=== PATIENT | female | born 1990 | race Caucasian/White ===

== ENCOUNTER 2017-01-19 08:23 | Emergency (ER) | payer OTHER ==
[2015-01-01 12:27] VITALS: BMI 27.9
--- NOTE | 2017-01-20 11:07 | OBHP ---
Datetime: 01/19/2017 09:08 IP Adm Impression: , intrauterine ; No Active Labor IP Chief Complaint Other: For NST IP Admit Plan: Discharge home Admit Comment, IP Provider: 26 y.o. , LMP unsure, KERI 02/25/17, EGA 34w 5d, referred for NST. (+ ) AFM, denies LOF, VB, Ctx. Last had sexual intercourse 1 week ago. issues: [facility] - no is sues. Next visit 01/20/17. P Ob: 05/2014, C/S, elective (patient request) - male, 8lb 5oz; no complications, CH P MEDICAL NURSE: 12 x monthly x . 2013, (+) chlamydia PMH: denies PSH: C/S NKDA Meds: PNV Soc Hx: denies tobacco, illicit drug or EtOH use. With FOB x 5 years; lives with him and daughter. Fam Hx: Mother and father - both 50 y.o.; alive; no med issues. No known fam h/o cancer P.E.: as above. WD in NAD. Awake, alert, oriented to time, person and place. Pleasant and cooperat melvin. Assessment: 26 y.o. P1, 34w 5d, previous C/S x 1; NST reactive/ Category [address] able. Plan: 1) Discharge home 2) Reviewed S/S PTL 3) Keep scheduled appointments Pelvic Type - PN: Not Done Extremities - PN: Normal Abdomen - PN: Normal Back - PN: Normal Breast - PN: Not Done Lungs - PN: Normal Heart - PN: Normal Thyroid - PN: Not Done Neurologic - PN: Normal HEENT - PN: Normal General - PN: Normal Presentation-Admit: Vertex FHR - Baseline A Provider: 135 Contraction Comments Provider: none Comments, ACOG Physical Exam: Abdomen: Gravid. Soft. non tender in all quadrants. Fundal height 34 c m. Healed Pfannenstiel scar. All other systems reviewed and are negative Gestation - Est Wks by US: 34w 5d EGA AdmitDate IP: 34.5 IP Chief Complaint: Other NICHD Variability Prov Fetus A: Moderate 6-25bpm NICHD Accel Fetus A IP Provider: 15X15 FHR Category Provider Fetus A: Category I NICHD Decel Fetus A IP Provider: None Dilatation, Provider: deferred Genitourinary Exam: Not Done DTRs - PN: Not Done
[2017-01-20 15:06] VITALS: BP 107/63; PULSE 88; RESP 18; TEMP 98.5; O2SAT 100
== END 2017-01-19 08:59 | disposition home or self-care (01) ==
LOC: C.EROB 08:23
DX: Z36 Encounter for antenatal screening of mother (principal)

== ENCOUNTER 2017-01-24 05:48 | Emergency (ER) | payer OTHER ==
[2017-01-24 06:07] VITALS: BMI 28.9
[2017-01-24 14:45] VITALS: BP 91/49; PULSE 87; RESP 18
== END 2017-01-24 10:41 | disposition home or self-care (01) ==
LOC: C.EROB 05:48
DX: O26.853 Spotting complicating pregnancy, third trimester (principal); Z3A.35 35 weeks gestation of pregnancy
CPT/HCPCS: 81001; 96365; 99283; J0696; J7120

== ENCOUNTER 2017-02-16 07:50 | Inpatient (IN) | payer OTHER ==
[2017-02-18] MEDS ORDERED: Sodium Citrate/Citric Acid 15 ml Sol PO ONE (06:40)
[2017-02-18] MEDS ORDERED: cefOXitin IV 2 gm in Dextrose 2 GM/50 ML BAG IVPB ONE ×2 (06:40→07:24)
--- NOTE | 2017-02-18 06:43 | OBADHP ---
Datetime: 02/18/2017 06:35 Admit Comment, IP Provider: 26 y/o y/o @ 39 wks by LMP KERI 02/25/17 reports here for scheueld cesearen sectio. pt denies any ctx, lof, vb, +FM. pt reports pnc has been uncomplicated Ante: PNC at clnic, elevated 1 hour GTT, normal 3 hour GTT as per pt OB: P1 FT PLTCS Elective 7lbs + no complicatoins 3 years ago VP ACCOUNT DIRECTOR: dneies hx of abnormla pap, fibroids, ovarian cyst, STI PMH: denies PSH: CxS FHX: denies SHX: negateive etoh/tobacco/drugs MEDS: pnvs a/p 26 y/o @ 39 wks GA with prior cesearen section with elective repeat cesearen section 1. admit to L+D 2. NPO 3. Admission labs 4. Cont toco and efm 5. Anesthesia consult 6. NPO< IVF 7. Anbitiocs 8. abodminal prep 9. Jarvis to graivty Pelvic Type - PN: Adequate Extremities - PN: Normal Abdomen - PN: Normal Back - PN: Normal Breast - PN: Not Done Lungs - PN: Normal Heart - PN: Normal Thyroid - PN: Normal Neurologic - PN: Normal HEENT - PN: Normal General - PN: Normal Weight - Estimated: 3400 Presentation-Admit: Vertex FHR - Baseline A Provider: 135 Contraction Comments Provider: q 3-5 min Gestation - Est Wks by US: 39.0 IP Hx Assessment: The History has been Reviewed and is Current Vital Signs Provider: Reviewed; Within Normal Limits IP Chief Complaint: Scheduled Section NICHD Variability Prov Fetus A: Moderate 6-25bpm FHR Category Provider Fetus A: Category I Genitourinary Exam: Normal DTRs - PN: Normal EGA AdmitDate IP: 39.0 IP Adm Impression: Term, intrauterine IP Admit Plan: Initiate Section protocol Datetime: 01/24/2017 10:19 Dilatation, Provider: 0 Effacement, Provider: thick Station, Provider: high Datetime: 01/24/2017 06:14 IP Chief Complaint Other: vaginal spotting Comments, ACOG Physical Exam: gravid,non tender ext no edema,no yifan sse no blood NICHD Accel Fetus A IP Provider: 10X10 Datetime: 01/19/2017 09:08 NICHD Decel Fetus A IP Provider: None
[2017-02-18] MEDS ORDERED: Sodium Citrate/Citric Acid 15 ml Sol ONE (07:24)
[2017-02-18] MEDS ORDERED: Oxytocin 20 units in LR 2,000 ML IV ONE (07:24)
[2017-02-18 07:39] LABS: BASO # 0.1 K/uL (0.0-0.2); BASO % 0.5 % (0.0-2.0); EOS # 0.2 K/uL (0.0-0.7); EOS % 1.5 % (0.0-4.0); HEMATOCRIT 34.7 % (34.0-47.0); LYMPH # 2.2 K/uL (1.0-4.3); LYMPH % 17.3 % (20.0-40.0); MEAN CELL VOLUME 78.7 fL (81.0-99.0); MEAN CORPUSCULAR HEMOGLOBIN 25.1 pg (27.0-31.0); MEAN CORPUSCULAR HGB CONC 31.9 g/dL (33.0-37.0); MEAN PLATELET VOLUME 10.9 fL (7.2-11.7); MONO # 0.7 K/uL (0.0-0.8); MONO % 5.9 % (0.0-10.0); RED CELL DISTRIBUTION WIDTH 15.5 % (11.5-14.5); WHITE BLOOD COUNT 12.5 K/uL (4.8-10.8)
[2017-02-18] MEDS ORDERED: Oxytocin 10 Units/ml Inj ONE (07:42)
[2017-02-18] MEDS: Lactated Ringer's 1,000 ML IV SCH ×3 (07:44→22:45)
[2017-02-18 07:51] LABS: RBC URINE 7 /hpf (0-3); URINE BACTERIA OCC (<OCC); URINE BILIRUBIN NEGATIVE (NEGATIVE); URINE BLOOD 1+ (NEGATIVE); URINE COLOR Yellow (YELLOW); URINE GLUCOSE (UA) NORMAL (Normal); URINE KETONE NEGATIVE (NEGATIVE); URINE LEUKOCYTE ESTERASE 3+ Leu/uL (Negative); URINE PROTEIN NEGATIVE (NEGATIVE); URINE UROBILINOGEN NORMAL mg/dL (0.2-1.0); WBC URINE 14 /hpf (0-5)
[2017-02-18 07:53] LABS: CHLORIDE 107 mmol/L (98-107); SODIUM 137 mmol/L (132-148)
[2017-02-18 07:54] LABS: POTASSIUM 4.2 mmol/L (3.6-5.2)
[2017-02-18 07:56] LABS: CARBON DIOXIDE 21 mmol/L (22-30); GFR AFRICAN-AMERICAN > 60
[2017-02-18 07:57] LABS: BLOOD UREA NITROGEN 10 mg/dL (7-17); CALCIUM 8.4 mg/dl (8.6-10.4); GLUCOSE,RANDOM 72 mg/dL (65-105)
--- NOTE | 2017-02-18 08:04 | OBPN ---
Datetime: 02/18/2017 07:58 Membranes, Provider: Intact Contraction Comments Provider: 5-7 FHR - Baseline A Provider: 140 Gestation - Est Wks by US: 39.0 Presentation-Admit: Vertex IP Progress Note Comment: Patient received in LDR#2: (+) AFM; denies LOF, VB, CTX V.E. as above. Assessment: 26 y.o. P1, 39 weeks, previous section for elective repeat C/S. Category 1 tr acing. R/B/C discussed, no questions offered. Consents signed, dated, witnessed and placed in chart. Patient last ate 2130 hours 02/17/17. Patient is clinically stable. Plan: 1) will call clerk to O.R. NICHD Accel Fetus A IP Provider: 15X15 NICHD Variability Prov Fetus A: Moderate 6-25bpm Dilatation, Provider: 0 Effacement, Provider: 0 Station, Provider: high NICHD Decel Fetus A IP Provider: None Datetime: 02/18/2017 06:35 Weight - Estimated: 3400 Vital Signs Provider: Reviewed; Within Normal Limits FHR Category Provider Fetus A: Category I
[2017-02-18] MEDS ORDERED: Morphine 1 mg/ml preservative-free Inj(Duramorph) ONE (08:12)
[2017-02-18] MEDS ORDERED: Phenylephrine 10 mg/ml Inj ONE (08:37)
[2017-02-18] MEDS ORDERED: DiphenhydrAMINE 50 mg/ml Inj IVP PRN (10:00)
[2017-02-18] MEDS ORDERED: Naloxone 0.4 mg/ml Inj (Adult) IVP PRN (10:10)
--- NOTE | 2017-02-18 11:32 | PCM.SURG1 ---
Surgeon's Initial Post Op Note - Surgeon's Notes Surgeon: Ghislaine Chinchilla MD Meter And Regulator Shop Supervisor: Sean Sarkar MD; 2nd Meter And Regulator Shop Supervisor: Lg El MS-3 Type of Anesthesia: Spinal Anesthesia Administered By: Matthew Toro MD Pre-Operative Diagnosis: 39 weeks gestation, Previous section Operative Findings: Live female infant; ANNY position, loose nuchal cord x 1; weight 7lb 2oz, 's 9/9 Post-Operative Diagnosis: Same Operation Performed: repeat LTCS Specimen/Specimens Removed: None Estimated Blood Loss: EBL {In ML}: 600 (U.O. 200 mL; IVFs 2,00 mL) Blood Products Given: N/A Drains Used: No Drains Post-Op Condition: Good Date of Surgery/Procedure: 02/18/17 Time of Surgery/Procedure: 09:30
[2017-02-18] MEDS ORDERED: Oxycodone/Acetaminophen 5/325 mg Tab PO PRN ×2 (21:09)
[2017-02-18] MEDS: Simethicone 80 mg Chewtab PO SCH (21:50)
--- NOTE | 2017-02-18 22:39 | OBDS ---
DELIVERY PERSONNEL Delivery Doctor: Cris Chinchilla MD Scrub Nurse: Nichelle Lubin OBT Compressed Air Pile Driver Operator: Kenisha Ruiz RN Anesthesiologist: Cris Toro MD MATERNAL INFORMATION Delivery Anesthesia: Spinal Estimated Blood Loss (ml): 600 Placenta Cultured: No Maternal Complications: None RN Comments: liveborn baby girl born via repeat c/s, 9/9 Provider Comments: Uncomplicated repeat LTCS with atraumatic delivery of live female , ANNY pos ition, loose nuchal cord x 1, weight 7lb 20z, 's 9/9. LABOR SUMMARY EDC: 02/25/2017 00:00 No. Babies in Womb: 1 Attempted: No Labor Anesthesia: Intrathecal LABOR INFORMATION Reason for Induction: Not Applicable Oxytocin: N/A Group B Beta Strep: Negative Steroids Given: None Reason Steroids Not Administered: Not Applicable MEMBRANES Membranes Rupture Method: Artificial Rupture of Membranes: 02/18/2017 08:48 Length of Rupture (hrs): 0.00 Amniotic Fluid Color: Clear Amniotic Fluid Amount: Moderate Amniotic Fluid Odor: None STAGES OF LABOR Stage 3 hrs: 0 Stage 3 min: 1 CSECTION DELIVERY Primary Indication: Repeat Elective Secondary Indication: N/A CSection Urgency: Elective CSection Incidence: Repeat Labor: No Labor Elective: Elective CSection Incision: Lower Uterine Transverse BABY A INFORMATION Infant Delivery Date/Time: 02/18/2017 08:48 Method of Delivery: Born in Route : No : N/A Forceps: N/A Vacuum Extraction: N/A Shoulder Dystocia : No SHOULDER DYSTOCIA BABY A Delivery Date/Time: 02/18/2017 08:48 PRESENTATION/POSITION BABY A Presentation: Cephalic Cephalic Presentation: Vertex Vertex Position: Right Occipital Anterior Breech Presentation: N/A PLACENTA INFORMATION BABY A Placenta Delivery Time : 02/18/2017 08:49 Placenta Method of Delivery: Manual Removal Placenta Status: Delivered SCORES BABY A Heart Rate 1 min: >100 bpm Resp Effort 1 min: Good Cry Reflex Irritability 1 min: Cough or Sneeze or Pulls Away Muscle Tone 1 min: Active Motion Color 1 min: Body [place], Extremities Blue SCORE 1 MIN: 9 Heart Rate 5 min: >100 bpm Resp Effort 5 min: Good Cry Reflex Irritability 5 min: Cough or Sneeze or Pulls Away Muscle Tone 5 min: Active Motion Color 5 min: Body [place], Extremities Blue SCORE 5 MIN: 9 INFANT INFORMATION BABY A Gestational Age at Delivery: 39.0 Gestational Status: Term Infant Outcome : Liveborn Condition : Stable Sex: Female IDENTIFICATION/MEDS BABY A ID Band Number: [id number] ID Band Location: Left Leg; Left Arm Sensor Applied: Yes Sensor Number: [id number] Sensor Location : Cord Clamp Vitamin K Given : Not Given Erythromycin Given: Not Given WEIGHT/LENGTH BABY A Infant Birthweight (gms): 3245 Weight (lb): 7 Infant Weight (oz): 2 Length Inches: 19.25 Infant Length cms: 48.9 CORD INFORMATION BABY A No. Cord Vessels: 3 Nuchal Cord : Around Neck x1, Loose Nuchal Cord Other: x1 body loose Cord Blood Taken: Yes Suction: Mouth; Nose
--- NOTE | 2017-02-19 01:14 | OP ---
DATE OF SURGERY: 02/18/2017. SURGEON: Ghislaine Chinchilla MD REGIONAL RETAIL SALES MANAGER: Sean Sarkar MD SECOND STUDENT MINISTRIES DIRECTOR: Lg El MS-3. ANESTHESIOLOGIST: Matthew Toro MD TYPE OF ANESTHESIA: Spinal. PREOPERATIVE DIAGNOSIS: 39 weeks' gestation, previous Caesarean section. POSTOPERATIVE DIAGNOSIS: 39 weeks' gestation, previous Caesarean section. OPERATIVE FINDINGS: Live female from the right occiput anterior position with a loose nuchal cord x1. Weight was 7 pounds 2 ounces. Apgars were 9 and 9 at 1 and 5 minutes respectively. Normal uterus, and normal ovaries and fallopian tubes bilaterally. OPERATION PERFORMED: Repeat transverse lower uterine segment Caesarean section. COMPLICATIONS: None. SPECIMENS: None. ESTIMATED BLOOD LOSS: 600 mL. URINE OUTPUT: 600 mL of clear urine. IV FLUIDS: Lactated Ringers 2000 mL. 20 units of Pitocin had been administered. BLOOD PRODUCTS: None. COMPLICATIONS: None. DESCRIPTION OF PROCEDURE: The patient was taken to the operating room after having obtained informed consent for the anticipated procedure. This included a discussion of possible risks and complications including, but not limited to infection requiring antibiotics, hemorrhage requiring blood transfusion, repair of any damage to internal organs, possible Caesarean hysterectomy. The patient offered no questions. Consents were signed, dated, witnessed, and placed in the chart. The patient was then escorted to the operating room. Prior to this, a Jarvis catheter had been inserted under sterile conditions. The patient received Mefoxin 2 grams IV piggyback. In the operating room, she was placed on the operating room table in a sitting position where spinal anesthesia was administered without incident. She was immediately repositioned in a supine position. The abdomen was subsequently prepped and she was draped in the usual sterile fashion. After assuring an adequate level of anesthesia, using the first scalpel, a Pfannenstiel incision was made through the previous scar. The incision was carried down through the subcutaneous tissue using the Bovie electrocautery. The fascia was identified, it was nicked in the midline, and the incision was extended bilaterally using the Bovie electrocautery. The overlying fascia was then dissected off the rectus muscle. The rectus muscle was then in the midline using sharp dissection. The parietal peritoneum was pierced using the scalpel. The vesicouterine reflection was identified and the bladder flap was created. A transverse incision was then made on the lower uterine segment. The incision was extended bilaterally using the Bandage scissors. Amniotomy was performed and a copious amount of clear amniotic fluid was retrieved. Atraumatic delivery of the with the findings as above then ensued. Once on the operative field, the 's mouth and nose were bulb suctioned as the umbilical cord was doubly clamped and cut. The loose nuchal cord that had been appreciated was easily reduced over the baby's body. The was handed off the operative field to the piano maker in attendance. By manual extraction, the placenta was delivered. It was grossly intact and 3 vessels present in the cord. The uterus was then exteriorized for closure. This was done in 2 layers using 0 Vicryl. The first layer was in a running interlocking fashion and the second layer was in a horizontal imbricating fashion. Additional sutures using 2-0 Monocryl were placed to assure hemostasis. Attention was then directed to the posterior aspect of the uterus with the findings of the pelvic viscera as noted above. Copious irrigation was performed. Returning attention to the uterine incision, Surgicel was placed along the uterine incision and the bladder flap was reapproximated using 2-0 chromic in a running fashion. The uterus was then returned to the abdominal cavity. The paracolic gutters were cleared of all debris. The parietal peritoneum was reapproximated using 2-0 chromic in a running fashion. The muscle was reapproximated in the midline also using 2-0 chromic in a running fashion. The fascia was reapproximated using 1-0 Vicryl in a running fashion in two halves. The subcutaneous tissue was reapproximated using plain catgut in a running fashion and the skin was reapproximated using surgical clips. A pressure dressing was applied. The patient was then positioned in a frog like position and bimanual exploration was performed. The uterus was emptied of additional clots. It was contracted and firm, at the level of the umbilicus. The patient tolerated the procedure well. She was transferred to the recovery room in stable condition. The infant has been transferred to the [facility] for further evaluation also in stable condition Dr. Sarkar was present during the entire procedure, from beginning to end. His presence was necessary for: 1) assuring adequate visualization of the operative field at all times 2) the safe and atraumatic delivery of the infant 3) assuring hemostasis at all times. Ghislaine Chinchilla MD T: 02/18/2017 16:41:50 ANTOINETTE
[2017-02-19 08:04] LABS: RED CELL DISTRIBUTION WIDTH 15.5 % (11.5-14.5)
[2017-02-19] MEDS: Simethicone 80 mg Chewtab PO SCH ×4 (09:21→21:23)
--- NOTE | 2017-02-19 09:55 | OBPPN ---
Datetime: 02/19/2017 09:46 PP Pain Prov: Within normal limits PP Nausea Prov: Denies PP Flatus Prov: Yes PP BM Prov: No PP Breasts Prov: Normal PP Heart Prov: Normal PP Lungs Prov: Normal PP Abdomen/Uterus Prov: Normal PP Lochia Prov: Normal PP Vulva/Perineum Prov: Normal PP CVA Tenderness Prov: Normal PP Extremities Prov: Normal PP C/S Incision Prov: Normal PP Progress Prov: Normal PP Impression Prov: Normal progression PP Plan Prov: Continue present management PP Progress Note Prov: Pt seen and examined and reports pain is controlled with medication. Pt repor ts ambuating, voiding, passing flatus, no BM. Pt denies any fever, chills, nausea, vomiting, CP, SOB. lightheadness, dizzyness. Pt is breast and bottle feeding and denies any feelings of sadness or depr ession. VSS PE: GEN: NAD, AAO x 3 BREAST: NT, Non engorged b/l RES: CTAB/l CVS: RRR, +S1/S2 ABD: soft, NT/ND, +BS. No guarding, no reboudn tenderness, no rigidity FUNDUS: Firm, at level of umbiliucs INCISCION C/D/I healing well yadira intact VE: Minimal lochia, non fouls smelling EXT: no calf tenderness, negative cachorro's sign A/P s/p PLTCS POD #1 doingl well -pain managment -d/c bermudez -advance diet as tolerated -encourage ambuation with assistance as needed -am labs -cont current managment Vital Signs Provider PP: Reviewed; Within Normal Limits
[2017-02-19 11:41] LABS: HEMATOCRIT 28.9 % (34.0-47.0); MEAN CELL VOLUME 78.2 fL (81.0-99.0); MEAN CORPUSCULAR HEMOGLOBIN 25.1 pg (27.0-31.0); MEAN PLATELET VOLUME 10.8 fL (7.2-11.7); WHITE BLOOD COUNT 16.6 K/uL (4.8-10.8)
[2017-02-20] MEDS: Simethicone 80 mg Chewtab PO SCH ×4 (09:49→21:48)
--- NOTE | 2017-02-20 11:12 | OBPPN ---
Datetime: 02/20/2017 11:09 PP Pain Prov: Within normal limits PP Nausea Prov: Denies PP Flatus Prov: Yes PP BM Prov: No PP Breasts Prov: Normal PP Heart Prov: Normal PP Lungs Prov: Normal PP Abdomen/Uterus Prov: Normal PP Lochia Prov: Normal PP Vulva/Perineum Prov: Normal PP CVA Tenderness Prov: Normal PP Extremities Prov: Normal PP C/S Incision Prov: Normal PP Progress Prov: Normal PP Impression Prov: Normal progression PP Plan Prov: Continue present management PP Progress Note Prov: Pt seen and examined and reports pain is controlled with medication. Pt repor ts ambuating, voiding, passing flatus, no BM. Pt denies any fever, chills, nausea, vomiting, CP, SOB. lightheadness, dizzyness. Pt is breast and bottle feeding and denies any feelings of sadness or depr ession. VSS PE: GEN: NAD, AAO x 3 BREAST: NT, Non engorged b/l RES: CTAB/l CVS: RRR, +S1/S2 ABD: soft, NT/ND, +BS. No guarding, no reboudn tenderness, no rigidity FUNDUS: Firm, below level of umbiliucs INCISCION C/D/I healing well yadira intact VE: Minimal lochia, non fouls smelling EXT: no calf tenderness, negative cachorro's sign LABS: Pre Hb: 11.1--L> post 9.3 A/P s/p PLTCS POD #2 doing well, with acute asympomatic blood loss anemia -pain managment -ferrous sulfate -advance diet as tolerated -encourage ambuation with assistance as needed -cont current managment IP PP Procedures: None Vital Signs Provider PP: Reviewed; Within Normal Limits
[2017-02-20 16:18] VITALS: O2SAT 99
[2017-02-21 08:33] VITALS: BP 109/68; PULSE 94; RESP 18; TEMP 97.7
[2017-02-21] MEDS: Simethicone 80 mg Chewtab PO SCH (09:17)
--- NOTE | 2017-02-21 09:56 | OBPPN ---
Datetime: 02/21/2017 09:46 PP Pain Prov: Within normal limits PP Nausea Prov: Denies PP Flatus Prov: Yes PP BM Prov: Yes PP Breasts Prov: Normal PP Heart Prov: Normal PP Lungs Prov: Normal PP Abdomen/Uterus Prov: Normal PP Lochia Prov: Normal PP Vulva/Perineum Prov: Not Done PP CVA Tenderness Prov: Normal PP Extremities Prov: Normal PP C/S Incision Prov: Normal PP Progress Prov: Not Applicable PP Comments Phys Exam Prov: Abdomen: (+) BS. Soft. Nn distended. fundus firm, mobile, nontender 1 F B below umbilicus. Incision with surgical clips - clean, dry and intact. Mild lochia rubra Extremities: No calf tenderness All other systems reviewed and are negative PP Impression Prov: Normal progression PP Plan Prov: Discharge PP Progress Note Prov: Patient received in room 450 in very good spirits. Pumping breast as opposed to placing to breasts. Ambulating and voiding without difficulty. Looking forward to going ho me P.E.: as above. WD in NAD. Awake, alert, oriented to time, person and place. Pleasant and delroy ative - POD#1 H/H 9.3/28.9; Rh(+) Assessment: POD#3 26 y.o. P2, S/P rpt LTCS. Afebrile, vital signs stable. Mild anemia - asympto matic and hemodynamically stable. Returned GI and functions. Interested in DepoProvera for contrac eption. Clinically stable. Plan: 1) Discharge home 2) see full discharge instructions Vital Signs Provider PP: Reviewed Vital Signs Provider Details PP: Patient is pumping her breasts, no t putting to the breast
--- NOTE | 2017-02-21 10:02 | OBDCSUM ---
Datetime: 02/21/2017 09:57 Discharged to, Provider: Home Follow up at, Provider: [facility] Disch Instr Activity: Normal activity; May be up to bathroom; May be up for meals; May Shower Discharge Instructions, Provider: Routine instructions given Discharge Diagnosis, Provider: Term Delivered Follow up in weeks, Provider: 02/25 - staple removal Contraception discussed, Prov: Yes Disch Activity Restrictions: No exercising; No lifting; No sexual activity; Nothing in vagina - Inte rcourse, tampons, douche Discharge Diagnosis Prov Other: Status post repeat section Anemia Contraception counseling Contraception after Delivery: Depo-Provera
== END 2017-02-21 13:00 | disposition home or self-care (01) | DRG 370 ==
LOC: C.4D 02-18 06:11 → C.4M 02-18 13:07
PROVIDERS: ADMIT Obstetrics & Gynecology; ATTEND Obstetrics & Gynecology
PROC: 10D00Z1 Extraction of Products of Conception, Low, Open Approach (ICD-10-PCS; principal; 2017-02-18)
DX: O34.211 Maternal care for low transverse scar from previous cesarean delivery (principal); O99.02 Anemia complicating childbirth; D64.9 Anemia, unspecified; O69.81X0 Labor and delivery complicated by cord around neck, without compression, not applicable or unspecified; Z37.0 Single live birth; Z3A.39 39 weeks gestation of pregnancy

== ENCOUNTER 2017-02-27 10:08 | Emergency (ER) | payer OTHER ==
[2017-02-27 10:08] VITALS: BMI 28.9
[2017-02-27 10:25] VITALS: O2SAT 99
--- NOTE | 2017-02-27 11:28 | C.PDOC ---
History Of Present Illness 02/27/2017 26 y/o female presents to the ED s/p section on 02/18, staple removal 02/24, now noting blood on her underpants today. Patient denies any fever or chills. no abdominal pain. Time Seen by Provider: 02/27/17 10:41 Chief Complaint (Nursing): Wound Check History Per: Patient History/Exam Limitations: no limitations Onset/Duration Of Symptoms: Other (yadira removed) Current Symptoms Are (Timing): Still Present Location Of Injury: Anterior: Abdomen ( yadira removed) Past Medical History Reviewed: Historical Data, Nursing Documentation, Vital Signs Vital Signs: Last Vital Signs Temp 97.7 F 02/27/17 11:36 Pulse 65 02/27/17 11:36 Resp 16 02/27/17 11:36 BP 116/78 02/27/17 11:36 Pulse Ox 99 03/01/17 11:25 Surgical History: - [facility] Procedures EXTRACTION OF POC, LOW CERVICAL, OPEN APPROACH (02/18/17) LOW CERVICAL (05/28/14) TETANUS TOXOID ADMINIST (01/01/15) Family History: States: Unknown Family Hx - Social History Hx Tobacco Use: No Hx Alcohol Use: No Hx Substance Use: No - Immunization History Hx Tetanus Toxoid Vaccination: No Hx Influenza Vaccination: No Hx Pneumococcal Vaccination: No Review Of Systems Constitutional: Negative for: Fever, Chills Skin: Positive for: Other (bleeding from wound). Negative for: Bruising Physical Exam - Physical Exam Appears: Well, Non-toxic, No Acute Distress Skin: Normal Color, Warm, Dry, Other (2cm shallow opening on the left side of wound. No drainage noted. scant dried blood. rest of healing incision without erythema, warmth.) Gastrointestinal/Abdominal: Soft, No Tenderness, No Distention Neurological/Psych: Oriented x3, Normal Speech, Normal Motor, Normal Sensation, Normal Reflexes Gait: Steady ED Course And Treatment O2 Sat by Pulse Oximetry: 99 (room air) Pulse Ox Interpretation: Normal Medical Decision Making Medical Decision Makin02/27/2017 Impression: 26 y/o female with 2cm shallow opening in the left side of wound. No noted drainage. Abdomen is soft, non-tender, non distended. Plan: -discuss with gy computer operations analyst -- Reassess and disposition Re-evaluation: discussed with Dr Saeed, will get wound culture, start on antibiotics and f/u sustainable systems analyst francine Disposition Counseled Patient/Family Regarding: Diagnosis, Need For Followup, Rx Given - Disposition Disposition: HOME/ ROUTINE Disposition Time: 11:26 Condition: STABLE Additional Instructions: Take antibiotics as prescribed. Keep wound clean and dry. Follow up with boiler fireman tomorrow. Return to ER for any worsening symptoms. Prescriptions: Clindamycin [Cleocin] 300 mg PO BID #14 cap Instructions: Surgical Site Infections (ED) Forms: [facility] (Lithuanian), General Discharge Instructions - Clinical Impression Clinical Impression: Wound dehiscence - Scribe Statement The provider has reviewed the documentation as recorded by the Scribe 02/27/2017 Scribe Attestation: Tara Benjamin MD Scribe Attestation: All medical record entries made by the Scribe were at my direction and personally dictated by me. I have reviewed the chart and agree that the record accurately reflects my personal performance of the history, physical exam, medical decision making, and the department course for this patient. I have also personally directed, reviewed, and agree with the discharge instructions and disposition.
[2017-02-27 11:37] VITALS: BP 116/78; PULSE 65; RESP 16; TEMP 97.7
== END 2017-02-27 11:36 | disposition home or self-care (01) ==
LOC: C.ER 10:08
DX: T81.30XA Disruption of wound, unspecified, initial encounter (principal)

== ENCOUNTER 2017-09-09 10:44 | Emergency (ER) | payer OTHER ==
[2017-09-09 10:58] VITALS: BMI 23.2
[2017-09-09 10:59] VITALS: BP 105/66; PULSE 84; RESP 17; TEMP 99.2; O2SAT 99
--- NOTE | 2017-09-09 11:20 | C.PDOC ---
History Of Present Illness 27 y/o F c no PMHx p/w sore throat, cough, rhinorrhea, chest pain only when coughing x 3 days. Denies dyspnea, vomiting. Time Seen by Provider: 09/09/17 11:13 Chief Complaint (Nursing): ENT Problem Past Medical History Vital Signs: Last Vital Signs Temp 99.2 F 09/09/17 11:03 Pulse 84 09/09/17 10:58 Resp 17 09/09/17 10:58 BP 105/66 09/09/17 10:58 Pulse Ox 99 09/09/17 10:58 - Medical History PMH: Denies: Depression, Diabetes, HTN Surgical History: - [facility] Procedures EXTRACTION OF POC, LOW CERVICAL, OPEN APPROACH (02/18/17) LOW CERVICAL (05/28/14) TETANUS TOXOID ADMINIST (01/01/15) Family History: States: Unknown Family Hx - Social History Hx Tobacco Use: No Hx Alcohol Use: No Hx Substance Use: No - Immunization History Hx Tetanus Toxoid Vaccination: No Hx Influenza Vaccination: No Hx Pneumococcal Vaccination: No Review Of Systems Except As Marked, All Systems Reviewed And Found Negative. Respiratory: Negative for: Shortness of Breath Gastrointestinal: Negative for: Vomiting Physical Exam - Physical Exam Additional Physical Exam Comments: Gen: NAD Head: NC Eyes: No scleral icterus ENT: MMM. No pharyngeal erythema or exudates Neck: Supple Chest: No tenderness CV: Regular rate Lungs: CTA b/l Abd: Soft, NT Back: No CVA tenderness Extremities: No swelling Skin: No rash Neuro: Alert, no focal deficit ED Course And Treatment O2 Sat by Pulse Oximetry: 99 Medical Decision Making Medical Decision Making: Symptoms consistent with viral URI, will advise supportive care. F/u primary care, return to ED for worsening pain, fever, dyspnea, vomiting, or any other problem. Disposition - Disposition Referrals: [facility] [Outside] Disposition: HOME/ ROUTINE Disposition Time: 11:19 Condition: STABLE Prescriptions: Acetaminophen [Tylenol 325mg tab] 2 tab PO Q4H #30 tab Ibuprofen [Motrin] 1 tab PO Q6 #30 tab Instructions: Viral Upper Respiratory Infection, Adult (DC) - Clinical Impression Clinical Impression: URI (upper respiratory infection)
== END 2017-09-09 11:35 | disposition home or self-care (01) ==
LOC: C.ER 10:44
DX: J06.9 Acute upper respiratory infection, unspecified (principal)